=== PATIENT | female | born 1935 | race Caucasian/White ===

== ENCOUNTER 2016-04-24 12:59 | Outpatient (CLI) ==
[2015-11-01 14:35] VITALS: BMI 22.8
[2016-04-24 13:21] LABS: HEMOGLOBIN 13.9 g/dl (12.0-16.0); MEAN CORPUSCULAR HEMOGLOBIN 30.5 pg (27.0-31.0); MEAN CORPUSCULAR HGB CONC 33.1 (31.8-35.4); MEAN CORPUSCULAR VOLUME 92.3 fl (81.0-99.0); RED BLOOD COUNT 4.55 10^6/ul (4.20-5.40); WHITE BLOOD COUNT 7.59 K/ul (4.6-10.2)
== END 2016-04-24 13:00 | disposition home or self-care (01) ==
LOC: LAB 12:59
PROVIDERS: ATTEND Internal Medicine Hematology & Oncology
DX: D45 Polycythemia vera (principal)
CPT/HCPCS: 36415; 85027

== ENCOUNTER 2016-05-14 13:17 | Outpatient (CLI) ==
[2015-11-01 14:35] VITALS: BMI 22.8
[2016-05-14 13:47] LABS: HEMATOCRIT 42.3 % (37.0-47.0); HEMOGLOBIN 14.7 g/dl (12.0-16.0); MEAN CORPUSCULAR HEMOGLOBIN 31.5 pg (27.0-31.0); MEAN CORPUSCULAR HGB CONC 34.8 (31.8-35.4); MEAN CORPUSCULAR VOLUME 90.6 fl (81.0-99.0); RED BLOOD COUNT 4.67 10^6/ul (4.20-5.40); WHITE BLOOD COUNT 8.72 K/ul (4.6-10.2)
[2016-05-14 14:12] LABS: ANION GAP 16.4; BUN/CREATININE RATIO 14.15; CALCIUM 10.1 mg/dL (8.2-10.2); CREATININE 2.12 mg/dL (0.60-1.30); POTASSIUM 5.4 mmol/L (3.5-5.10)
[2016-05-15 08:17] LABS: URINE CREATININE 177.1 mg/dL (Not Estab.)
[2016-05-15 09:55] LABS: URINE MALB/CR RATIO 40.9 mg/g creat (0.0-30.0)
== END 2016-05-14 13:18 | disposition home or self-care (01) ==
LOC: LAB 13:17
PROVIDERS: ATTEND Internal Medicine Nephrology
DX: N18.3 Chronic kidney disease, stage 3 (moderate) (principal)
CPT/HCPCS: 36415; 80048; 82043; 83970; 85027

== ENCOUNTER 2016-05-21 13:01 | Outpatient (CLI) ==
[2015-11-01 14:35] VITALS: BMI 22.8
[2016-05-21 13:19] LABS: HEMATOCRIT 38.8 % (37.0-47.0); HEMOGLOBIN 13.6 g/dl (12.0-16.0); MEAN CORPUSCULAR HEMOGLOBIN 31.8 pg (27.0-31.0); MEAN CORPUSCULAR HGB CONC 35.1 (31.8-35.4); MEAN CORPUSCULAR VOLUME 90.7 fl (81.0-99.0); RED BLOOD COUNT 4.28 10^6/ul (4.20-5.40); WHITE BLOOD COUNT 8.14 K/ul (4.6-10.2)
== END 2016-05-21 13:02 | disposition home or self-care (01) ==
LOC: LAB 13:01
PROVIDERS: ATTEND Internal Medicine Hematology & Oncology
DX: D45 Polycythemia vera (principal)
CPT/HCPCS: 36415; 85027

== ENCOUNTER 2016-05-27 09:49 | Outpatient (CLI) ==
[2015-11-01 14:35] VITALS: BMI 22.8
[2016-05-27 10:11] LABS: HEMATOCRIT 40.6 % (37.0-47.0); HEMOGLOBIN 14.1 g/dl (12.0-16.0); MEAN CORPUSCULAR HEMOGLOBIN 31.2 pg (27.0-31.0); MEAN CORPUSCULAR HGB CONC 34.7 (31.8-35.4); MEAN CORPUSCULAR VOLUME 89.8 fl (81.0-99.0); RED BLOOD COUNT 4.52 10^6/ul (4.20-5.40); WHITE BLOOD COUNT 6.71 K/ul (4.6-10.2)
[2016-05-27 10:28] LABS: ANION GAP 14.3; BUN/CREATININE RATIO 13.84; CALCIUM 9.6 mg/dL (8.2-10.2); CREATININE 1.3 mg/dL (0.60-1.30); POTASSIUM 4.3 mmol/L (3.5-5.10)
[2016-05-28 08:29] LABS: URINE CREATININE 77.3 mg/dL (Not Estab.)
[2016-05-29 07:52] LABS: URINE MALB/CR RATIO 11.6 mg/g creat (0.0-30.0)
== END 2016-05-27 09:50 | disposition home or self-care (01) ==
LOC: LAB 09:49
PROVIDERS: ATTEND Internal Medicine Nephrology
DX: N18.3 Chronic kidney disease, stage 3 (moderate) (principal)
CPT/HCPCS: 36415; 80048; 82043; 83970; 85027

== ENCOUNTER 2016-06-20 13:19 | Outpatient (CLI) ==
[2015-11-01 14:35] VITALS: BMI 22.8
[2016-06-20 13:35] LABS: HEMATOCRIT 38.3 % (37.0-47.0); HEMOGLOBIN 13.3 g/dl (12.0-16.0); MEAN CORPUSCULAR HEMOGLOBIN 31.1 pg (27.0-31.0); MEAN CORPUSCULAR HGB CONC 34.7 (31.8-35.4); MEAN CORPUSCULAR VOLUME 89.7 fl (81.0-99.0); RED BLOOD COUNT 4.27 10^6/ul (4.20-5.40); WHITE BLOOD COUNT 7.57 K/ul (4.6-10.2)
== END 2016-06-20 13:20 | disposition home or self-care (01) ==
LOC: LAB 13:19
PROVIDERS: ATTEND Internal Medicine Hematology & Oncology
DX: D45 Polycythemia vera (principal)
CPT/HCPCS: 36415; 85027

== ENCOUNTER 2016-07-17 13:04 | Outpatient (CLI) ==
[2015-11-01 14:35] VITALS: BMI 22.8
[2016-07-17 13:36] LABS: HEMATOCRIT 39.4 % (37.0-47.0); HEMOGLOBIN 13.6 g/dl (12.0-16.0); MEAN CORPUSCULAR HEMOGLOBIN 31.1 pg (27.0-31.0); MEAN CORPUSCULAR HGB CONC 34.5 (31.8-35.4); MEAN CORPUSCULAR VOLUME 90.2 fl (81.0-99.0); RED BLOOD COUNT 4.37 10^6/ul (4.20-5.40); WHITE BLOOD COUNT 7.49 K/ul (4.6-10.2)
== END 2016-07-17 13:05 | disposition home or self-care (01) ==
LOC: LAB 13:04
PROVIDERS: ATTEND Internal Medicine Hematology & Oncology
DX: D45 Polycythemia vera (principal)
CPT/HCPCS: 36415; 85027

== ENCOUNTER 2016-08-06 10:41 | Outpatient (CLI) ==
[2015-11-01 14:35] VITALS: BMI 22.8
[2016-08-06 10:57] LABS: BASOPHILS # (AUTO) 0.1 K/uL (0-0.2); BASOPHILS % (AUTO) 0.7 % (0.0-3.0); EOSINOPHILS # (AUTO) 0.1 K/ul (0.0-0.7); EOSINOPHILS % (AUTO) 1.6 % (0.0-7.0); HEMATOCRIT 41.6 % (37.0-47.0); HEMOGLOBIN 14.7 g/dl (12.0-16.0); IMMATURE GRANULOCYTE % (AUTO) 0.3 % (0.0-5.0); LYMPHOCYTES # (AUTO) 2.2 K/uL (0.60-3.4); LYMPHOCYTES % (AUTO) 31.7 (10.0-50.0); MEAN CORPUSCULAR HEMOGLOBIN 31.6 pg (27.0-31.0); MEAN CORPUSCULAR HGB CONC 35.3 (31.8-35.4); MEAN CORPUSCULAR VOLUME 89.5 fl (81.0-99.0); MONOCYTES # (AUTO) 0.4 K/uL (0.4-2.0); MONOCYTES % (AUTO) 6.3 (0-10); NEUTROPHILS # (AUTO) 4.1 K/ul (2.0-6.9); NEUTROPHILS % (AUTO) 59.4; PLATELET COUNT 229 10^3/uL (140-440); RED BLOOD COUNT 4.65 10^6/ul (4.20-5.40); WHITE BLOOD COUNT 6.87 K/ul (4.6-10.2)
[2016-08-06 11:38] LABS: ALBUMIN 3.5 g/dL (3.4-5.0); ALBUMIN/GLOBULIN RATIO 1.09; ANION GAP 13.8; BILIRUBIN,TOTAL 0.35 mg/dL (0.00-1.20); BUN/CREATININE RATIO 18.75; CALCIUM 10.3 mg/dL (8.2-10.2); CREATININE 1.6 mg/dL (0.60-1.30); FERRITIN 32.24 ng/mL (4.63-204.00); POTASSIUM 4.8 mmol/L (3.5-5.10); TOTAL PROTEIN 6.7 g/dL (5.8-8.1)
== END 2016-08-06 10:42 | disposition home or self-care (01) ==
LOC: LAB 10:41
PROVIDERS: ATTEND Internal Medicine Hematology & Oncology
DX: D45 Polycythemia vera (principal)
CPT/HCPCS: 36415; 80053; 82728; 83540; 83550; 85025

== ENCOUNTER 2016-11-18 11:39 | Outpatient (CLI) ==
[2015-11-01 14:35] VITALS: BMI 22.8
[2016-11-18 12:05] LABS: HEMATOCRIT 43.8 % (37.0-47.0); HEMOGLOBIN 15.7 g/dl (12.0-16.0); MEAN CORPUSCULAR HGB CONC 35.8 (31.8-35.4); MEAN CORPUSCULAR VOLUME 89.4 fl (81.0-99.0); RED BLOOD COUNT 4.9 10^6/ul (4.20-5.40); WHITE BLOOD COUNT 8.06 K/ul (4.6-10.2)
[2016-11-18 12:29] LABS: ANION GAP 14.6; BUN/CREATININE RATIO 13.58; CALCIUM 10.5 mg/dL (8.2-10.2); CREATININE 1.62 mg/dL (0.60-1.30); POTASSIUM 4.6 mmol/L (3.5-5.10)
[2016-11-19 08:18] LABS: URINE CREATININE 141.1 mg/dL (Not Estab.)
[2016-11-19 08:32] LABS: URINE MALB/CR RATIO 17.9 mg/g creat (0.0-30.0)
== END 2016-11-18 11:40 | disposition home or self-care (01) ==
LOC: LAB 11:39
PROVIDERS: ATTEND Internal Medicine Nephrology
DX: N18.3 Chronic kidney disease, stage 3 (moderate) (principal)
CPT/HCPCS: 36415; 80048; 82043; 83970; 85027

== ENCOUNTER 2017-06-19 09:31 | Outpatient (CLI) ==
[2015-11-01 14:35] VITALS: BMI 22.8
== END 2017-06-19 09:32 | disposition home or self-care (01) ==
LOC: LAB 09:31
PROVIDERS: ATTEND Internal Medicine Nephrology
DX: N18.3 Chronic kidney disease, stage 3 (moderate) (principal)
CPT/HCPCS: 36415; 80053; 82043; 85027

== ENCOUNTER 2017-12-23 12:43 | Outpatient (CLI) ==
[2015-11-01 14:35] VITALS: BMI 22.8
== END 2017-12-23 12:44 | disposition home or self-care (01) ==
LOC: LAB 12:43
PROVIDERS: ATTEND Internal Medicine Nephrology
DX: N18.3 Chronic kidney disease, stage 3 (moderate) (principal)
CPT/HCPCS: 36415; 80053; 82043; 85027

== ENCOUNTER 2018-06-22 10:31 | Outpatient (CLI) ==
[2015-11-01 14:35] VITALS: BMI 22.8
== END 2018-06-22 10:32 | disposition home or self-care (01) ==
LOC: LAB 10:31
PROVIDERS: ATTEND Internal Medicine Nephrology
DX: N18.3 Chronic kidney disease, stage 3 (moderate) (principal)
CPT/HCPCS: 36415; 80053; 82043; 83970; 85027